=== PATIENT | female | born 1990 | race Asian ===

== ENCOUNTER 2022-10-16 04:02 | Day surgery (SDC) | payer BC ==
[2022-10-12 13:41] VITALS: BMI 23.0
[2022-10-16 08:29] VITALS: RESP 18
[2022-10-16] MEDS ORDERED: ONDANSETRON 4 MG/2 ML VIAL ONE (10:21)
[2022-10-16] MEDS ORDERED: MIDAZOLAM HCL 2 MG/2 ML SINGLE DOSE VIAL ONE ×2 (10:21→10:28)
[2022-10-16] MEDS ORDERED: KETOROLAC TROMETHAMINE 30 MG/1 ML VIAL ONE (10:29)
[2022-10-16 12:29] VITALS: BP 114/66; PULSE 80; TEMP 98.5
== END 2022-10-16 12:10 | disposition home or self-care (01) ==
LOC: JASU-SURG 04:02
PROVIDERS: ATTEND Urology
PROC: 0TF3XZZ Fragmentation in Right Kidney Pelvis, External Approach (ICD-10-PCS; principal; 2022-10-16 10:00)
DX: N20.0 Calculus of kidney (principal)
CPT/HCPCS: 81025